=== PATIENT | male | born 1960 | race Caucasian/White ===

== ENCOUNTER → 2016-10-01 | Outpatient (CLI) | payer BC ==
--- NOTE | 2016-10-01 16:14 | CPEKG ---
Heart Rate: 77 RR Interval: 779 P-R Interval: 180 QRSD Interval: 100 QT Interval: 360 QTC Interval: 408 P [place]: 50 QRS [place]: -45 T Wave [place]: 68 EKG Severity - ABNORMAL ECG - EKG Impression: SINUS RHYTHM EKG Impression: VENTRICULAR PREMATURE COMPLEX EKG Impression: LEFT ANTERIOR FASCICULAR BLOCK Electronically Signed By: Ken Leonard 01-Oct-2016 16:26:41
== END ==
LOC: FCP 16:04
DX: Z01.818 Encounter for other preprocedural examination (principal)

== ENCOUNTER 2017-02-18 12:08 | Emergency (ER) | payer BC ==
[2017-02-18 13:09] LABS: % IMMATURE GRANULYOCYTES 0.3 % (0.0-1.1); ABSOLUTE IMMATURE GRANULOCYTES 0.02 10^3/uL (0.00-0.10); ADD DIFF? NO; ADD MORPH? NO; ADD SCAN? NO; ATYPICAL LYMPHOCYTE FLAG 0 (0-99); FRAGMENT RBC FLAG 0 (0-99); HEMATOCRIT 39.9 % (40.0-51.0); HEMOGLOBIN 12.8 g/dL (13.7-17.5); LEFT SHIFT FLG 0 (0-99); LIPEMIA HEMOLYSIS FLAG 80 (0-99); MEAN CELL HEMOGLOBIN 26.9 pg (27.9-34.1); MEAN CELL HEMOGLOBIN CONCENTR. 32.1 g/dL (32.4-36.7); MEAN PLATELET VOLUME 9.7 fL (8.7-11.7); PLATELET CLUMPS FLAG 0 (0-99); PLATELET COUNT 320 10^3/uL (150-400); RED BLOOD CELL COUNT 4.75 10^6/uL (4.40-6.38); RED CELL DISTRIBUTION WIDTH 16.2 % (11.5-15.2)
[2017-02-18 13:19] LABS: ALANINE AMINOTRANSFERASE 37 IU/L (21-72); ALBUMIN 4.5 g/dL (3.5-5.0); ALKALINE PHOSPHATASE 83 IU/L (38-126); ANION GAP 13 mEq/L (8-16); ASPARTATE AMINOTRANSFERASE 28 IU/L (17-59); BILIRUBIN,TOTAL 0.7 mg/dL (0.1-1.4); BILIRUBIN-CONJUGATED 0.3 mg/dL (0.0-0.5); BILIRUBIN-UNCONJUGATED 0.4 mg/dL (0.0-1.1); CALCIUM 10.1 mg/dL (8.5-10.4); CARBON DIOXIDE 26 mEq/l (22-31); CHLORIDE 101 mEq/L (97-110); CREATININE 0.6 mg/dL (0.7-1.3); GLOMERULAR FILTRATION RATE > 60; GLUCOSE 105 mg/dL (70-100); POTASSIUM 3.6 mEq/L (3.5-5.2); SODIUM 140 mEq/L (134-144); TOTAL PROTEIN 7.4 g/dL (6.3-8.2)
[2017-02-18] MEDS ORDERED: IOPAMIDOL (ISOVUE-300) 100 ML BTL ONE (13:22)
--- NOTE | 2017-02-18 13:32 | EDPHY ---
H & P Stated Complaint: Generalized abdominal pain Time Seen by Provider: 02/18/17 12:45 HPI/ROS: CHIEF COMPLAINT: abdominal pain, vomiting HISTORY OF PRESENT ILLNESS: 56-year-old male presents emergency department with his for abdominal pain, nausea and vomiting. Patient was diagnosed with celiac disease 10 months ago, he ate at a restaurant last night thinks perhaps the rice noodles had wheat in them. He also ate shrimp. He got home and started feeling "unsettled" in the abdomen. He woke up this morning with the same "unsettled" feeling, went to work, ate oatmeal and vomiting 15 minutes after eating breakfast. Pt vomited 4 more times at home prior to arrival here today. 2 bowel movements this morning, "maybe a little softer that normal". He feels chills, intermittent lower abdominal sharp pain with cramping. No urinary symptoms, no back pain. No blood in emesis. REVIEW OF SYSTEMS: A comprehensive 10 point review of systems is otherwise negative aside from elements mentioned in the history of present illness. Source: Patient Exam Limitations: No limitations - Personal History Current Tetanus/Diphtheria Vaccine: Yes Current Tetanus Diphtheria and Acellular Pertussis (TDAP): Yes - Medical/Surgical History Hx Asthma: No Hx Chronic Respiratory Disease: No Hx Diabetes: No Hx Cardiac Disease: Yes Hx Renal Disease: No Hx Cirrhosis: No Hx Alcoholism: No Hx HIV/AIDS: No Hx Splenectomy or Spleen Trauma: No Other PMH: hyperlipidemia, gerd, celiac - Social History Smoking Status: Never smoked Constitutional: Initial Vital Signs Temperature (C) 36.7 C 02/18/17 12:12 Heart Rate 73 02/18/17 12:12 Respiratory Rate 16 02/18/17 12:12 Blood Pressure 141/97 H 02/18/17 12:12 O2 Sat (%) 98 02/18/17 12:12 O2 Delivery Mode Room Air Allergies/Adverse Reactions: No Known Allergies Allergy (Unverified 07/26/10 19:13) Home Medications: Medication Instructions Recorded Aspirin 08/12/15 Crestor 08/12/15 Pantoprazole Sodium 08/12/15 Ranitidine HCl 08/12/15 Ondansetron Odt [Zofran Odt] 4 mg PO Q6-8PRN PRN #8 tab 02/18/17 Medical Decision Making - Diagnostics EKG Interpretation: EKG shows normal sinus rhythm, rate 59, left axis deviation, good R-wave progression, no ST or T-wave abnormalities. Imaging Results: Imaging Impressions Abdomen CT 02/18/17 13:03 Impression: 1. Mild distention of the stomach and proximal to mid duodenum with very mild thickening of the third and fourth portions of the duodenum. Consider mild duodenitis. 2. No CT evidence of appendicitis, abscess or bowel obstruction. Findings discussed with Kelly Lentz NP at 14:00 hour, 02/18/2017. 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 Urinalysis ordered. The CBC, Chem panel, LFTs and lipase are all unremarkable, troponin is negative. EKG is unremarkable. Urinalysis with no sign of infection. Report called by Dr. Villalpando as normal CT abdomen pelvis with no abnormality. Pt is given 1 liter of NS, zofran, protonix and simethicone. He is feeling better and is comfortable with plans for discharge home. He is given return precautions. Differential Diagnosis: The differential diagnosis for the patient's nausea and vomiting included but was not limited to gastroenteritis, gastritis, appendicitis, small-bowel obstruction, diverticulitis. - Data Points Laboratory Results: Laboratory Results 02/18/17 12:36 02/18/17 12:36 02/18/17 02/18/17 12:36 12:36 WBC 6.88 10^3/uL 10^3/uL (3.80-9.50) RBC 4.75 10^6/uL 10^6/uL (4.40-6.38) Hgb 12.8 g/dL L g/dL (13.7-17.5) Hct 39.9 % L % (40.0-51.0) MCV 84.0 fL fL (81.5-99.8) MCH 26.9 pg L pg (27.9-34.1) MCHC 32.1 g/dL L g/dL (32.4-36.7) RDW 16.2 % H % (11.5-15.2) Plt Count 320 10^3/uL 10^3/uL (150-400) MPV 9.7 fL fL (8.7-11.7) Neut % (Auto) 82.6 % H % (39.3-74.2) Lymph % (Auto) 11.8 % L % (15.0-45.0) [place] % (Auto) 4.4 % L % (4.5-13.0) Eos % (Auto) 0.3 % L % (0.6-7.6) Baso % (Auto) 0.6 % % (0.3-1.7) Nucleat RBC Rel Count 0.0 % % (0.0-0.2) Absolute Neuts (auto) 5.69 10^3/uL 10^3/uL (1.70-6.50) Absolute Lymphs (auto) 0.81 10^3/uL L 10^3/uL (1.00-3.00) Absolute Monos (auto) 0.30 10^3/uL 10^3/uL (0.30-0.80) Absolute Eos (auto) 0.02 10^3/uL L 10^3/uL (0.03-0.40) Absolute Basos (auto) 0.04 10^3/uL 10^3/uL (0.02-0.10) Absolute Nucleated RBC 0.00 10^3/uL 10^3/uL (0-0.01) Immature Gran % 0.3 % % (0.0-1.1) Immature Gran # 0.02 10^3/uL 10^3/uL (0.00-0.10) Sodium 140 mEq/L mEq/L (134-144) Potassium 3.6 mEq/L mEq/L (3.5-5.2) Chloride 101 mEq/L mEq/L (97-110) Carbon Dioxide 26 mEq/l mEq/l (22-31) Anion Gap 13 mEq/L mEq/L (8-16) BUN 13 mg/dL mg/dL (7-23) Creatinine 0.6 mg/dL L mg/dL (0.7-1.3) Estimated GFR > 60 Glucose 105 mg/dL H mg/dL (70-100) Calcium 10.1 mg/dL mg/dL (8.5-10.4) Total Bilirubin 0.7 mg/dL mg/dL (0.1-1.4) Conjugated Bilirubin 0.3 mg/dL mg/dL (0.0-0.5) Unconjugated Bilirubin 0.4 mg/dL mg/dL (0.0-1.1) AST 28 IU/L IU/L (17-59) ALT 37 IU/L IU/L (21-72) Alkaline Phosphatase 83 IU/L IU/L (38-126) Troponin I < 0.012 ng/mL ng/mL (0.000-0.034) Total Protein 7.4 g/dL g/dL (6.3-8.2) Albumin 4.5 g/dL g/dL (3.5-5.0) Lipase 151 IU/L IU/L (23-300) Medications Given: Discontinued Medications Sodium Chloride (Ns) 1,000 mls @ 0 mls/hr IV EDNOW ONE; Wide Open PRN Reason: Protocol Stop: 02/18/17 14:17 Last Admin: 02/18/17 14:50 Dose: 1,000 mls Pantoprazole Sodium 40 mg/ (Sodium Chloride) 100 mls @ 200 mls/hr IV EDNOW ONE Stop: 02/18/17 16:23 Last Admin: 02/18/17 16:02 Dose: 100 mls Ondansetron HCl (Zofran) 4 mg IVP EDNOW ONE Stop: 02/18/17 14:59 Last Admin: 02/18/17 15:06 Dose: 4 mg Simethicone (Mylicon) 160 mg PO EDNOW ONE Stop: 02/18/17 15:00 Last Admin: 02/18/17 15:07 Dose: 160 mg Departure - Departure Disposition: Home, Routine, Self-Care Clinical Impression: Acute gastroenteritis Condition: Good Instructions: Gastroenteritis (ED), Acute Nausea and Vomiting (ED) Additional Instructions: Drink clear liquids for the next 24 hours then advance your diet slowly as tolerated with bland foods such as rice, bananas, applesauce. Take zofran as needed for nausea every 6-8 hours. Follow up with Dr. Serrano at first available appointment. Return to the emergency department for any new symptoms, worsening symptoms or concerns. Referrals: Nena Martino MD [Primary Care Provider] - As per Instructions Prescriptions: Ondansetron Odt [Zofran Odt] 4 mg PO Q6-8PRN PRN #8 tab PRN Reason: Nausea/Vomiting, Can'T Take Po
[2017-02-18] MEDS ORDERED: NS 1,000 ML IV ONE (14:16)
--- NOTE | 2017-02-18 14:19 | CPEKG ---
Heart Rate: 59 RR Interval: 1017 P-R Interval: 184 QRSD Interval: 100 QT Interval: 408 QTC Interval: 405 P [place]: 15 QRS [place]: -48 T Wave [place]: 32 EKG Severity - ABNORMAL ECG - EKG Impression: SINUS RHYTHM EKG Impression: LEFT ANTERIOR FASCICULAR BLOCK Electronically Signed By: Rosy Elliott 19-Feb-2017 21:09:10
[2017-02-18 14:42] LABS: TROPONIN I < 0.012 ng/mL (0.000-0.034)
[2017-02-18] MEDS ORDERED: ONDANSETRON 4 MG/2 ML VIAL IVP ONE (14:58)
[2017-02-18] MEDS ORDERED: SIMETHICONE 80 MG TAB CHEW PO ONE (14:59)
[2017-02-18] MEDS ORDERED: PANTOPRAZOLE SODIUM 40 MG in NS 100 ML IV ONE (15:54)
[2017-02-18 16:38] VITALS: BP 133/70; PULSE 80; RESP 14; TEMP 97.7; O2SAT 97
== END 2017-02-18 16:37 | disposition home or self-care (01) ==
DX: K52.9 Noninfective gastroenteritis and colitis, unspecified (principal); E86.9 Volume depletion, unspecified; Z79.82 Long term (current) use of aspirin
CPT/HCPCS: 96365; J2405; Q9967

== ENCOUNTER → 2018-06-22 | Outpatient (CLI) | payer BC ==
[~2018-06-22] MED LIST: GADOBUTROL 10 ML VIAL IVP ONE
== END ==
LOC: FIMAGING 14:32
PROVIDERS: ATTEND Internal Medicine Endocrinology, Diabetes & Metabolism
DX: D35.2 Benign neoplasm of pituitary gland (principal)
CPT/HCPCS: A9585